=== PATIENT | male | born 1970 | race Caucasian/White ===

== ENCOUNTER → 2020-04-26 16:29 | Outpatient (CLI) | payer MEDICAID, SELFPAY ==
--- NOTE | 2020-04-26 16:50 | RAD_ITS ---
STUDY: X-RAY - CERVICAL SPINE REASON FOR EXAM: Male, 49 years old. BILATERAL HAND NUMBNESS, NKI TECHNIQUE: 5 view(s) of the cervical spine were obtained. COMPARISON: None FINDINGS: Normal anterior atlantoaxial articulation. Normal odontoid process. Normal cervical lordosis. There is multi-level endplate spondylosis. There is multi-level degenerative disc disease with multilevel disc space narrowing. There is multi-level osseous foraminal stenosis. The soft tissue structures are unremarkable. RAD/Cerv Spine 4 or 5 Views IMPRESSION: Degenerative changes without acute findings Electronically Signed: Maurice Escobar DO at 3:23 EST Tel , Service support ,
[2020-04-26 17:16] LABS: Absolute Lymphocyte Count 2.16 X10^3/uL (0.83-4.51); Absolute Neutrophil Count 5.1 X10^3/uL (2.0-7.7); Basophil# 0.04 X10^3/uL; Basophil% 0.5 % (0-1); Eosinophil# 0.14 X10^3/uL; Eosinophils% 1.7 % (0-5); Hematocrit 40.7 % (40-54); Hemoglobin 13.9 g/dL (13.0-16.5); Lymphocyte # 2.16 X10^3/ul (4.0); Lymphocyte % 26.5 % (19-41); Mean Corp Hgb Conc 34.2 g/dL (32-36); Mean Corpuscular Hgb 32.6 pg (27.0-32.0); Mean Corpuscular Volume 95.3 fL (80-94); Mean Platelet Vol. 9.3 fl (6.2-12.0); Monocyte% 8.6 % (0-10); NRBC Flagged by Analyzer 0 % (0-5); Neutrophil # 5.11 X10^3/uL (2.7-7.7); Neutrophil % 62.6 % (47-70); Platelet Count 251 K/mm3 (150-450); RBC Distribution Width CV 12.5 % (11.6-14.6); RBC Distribution Width SD 43.8 fl (35.1-43.9); Red Blood Count 4.27 M/mm3 (4.6-6.2); White Blood Count 8.2 K/mm3 (4.4-11.0)
[2020-04-26 17:55] LABS: ALB/GLOB Ratio 1.1 RATIO (0.9-2.4); AST(SGOT) 24 U/L (15-37); Alanine Aminotransfer ALT/SGPT 36 U/L (16-61); Albumin, Serum 3.9 g/dL (3.2-5.0); Alkaline Phosphatase 91 U/L (45-117); Anion Gap 6 (5-15); BUN 17 mg/dL (7-18); BUN/Creat Ratio 14.3 RATIO (10-20); CPK Total, Creatine Kinase 270 U/L (39-308); Calcium,Total 8.6 mg/dL (8.5-10.1); Chloride 105 mmol/L (98-107); Creatinine, Serum 1.19 mg/dL (0.70-1.30); EST Glomerular Filtration Rate 69 mL/min (>60); Est Glom Filt Rate - Afr Amer 84 mL/min (>60); Globulin 3.4 g/dL (2.2-4.2); Glucose 90 mg/dL (74-106); Magnesium 2.4 mg/dL (1.6-2.6); Potassium 4.2 mmol/L (3.5-5.1); Protein, Total 7.3 g/dL (6.4-8.2); Sodium Level 138 mmol/L (136-145)
[2020-04-26 17:57] LABS: Vitamin B12 350 pg/mL (211-911); Vitamin D,25 Hydroxy 56.2 ng/mL
== END ==
PROVIDERS: PCP Family Medicine; Referring Provider Family Medicine; Visit Provider Family Medicine
DX: R25.2 Cramp and spasm (principal); G62.9 Polyneuropathy, unspecified; G47.62 Sleep related leg cramps
CPT/HCPCS: 36415; 72050; 80053; 82306; 82550; 82607; 83735; 84443; 85025

== ENCOUNTER → 2020-05-05 08:03 | Outpatient (CLI) | payer MEDICAID, SELFPAY ==
--- NOTE | 2020-05-05 13:58 | NEURO ---
NCS and/or EMG Patient Report Ordering Doctor: Sophie Boucher DATE OF SERVICE: 05/05/20 Karan Childress presents for electrodiagnostic testing of the upper limbs. Reports numbness and tingling in both hands. Electrodiagnostic findings: The median motor nerve demonstrates prolonged distal latency on the left side with normal amplitude and reduced conduction velocity. Left median motor nerve demonstrates prolonged distal latency with normal amplitude and reduced conduction velocity. Normal ulnar motor latency is noted bilaterally with normal amplitudes and drop in conduction velocity across the elbow. Prolonged left median F-wave. Prolonged right ulnar F wave is noted. Prolonged median sensory latency at the wrist is noted bilaterally. On needle EMG, all muscles tested in the upper limb showed no evidence of denervation with normal motor unit action potentials. No denervation noted in the cervical paraspinals. Electrodiagnostic impression: This is an abnormal study in the upper limbs 1. Electrodiagnostic findings demonstrate bilateral median mononeuropathy. This is consistent with a mild to moderate bilateral carpal tunnel syndrome. 2. Electrodiagnostic findings demonstrate bilateral ulnar neuropathy, consistent with a mild bilateral cubital tunnel syndrome. 3. There is no electrodiagnostic evidence for cervical radiculopathy If there are any further questions, please do not hesitate to contact me
== END ==
PROVIDERS: PCP Family Medicine; Referring Provider Family Medicine; Visit Provider Family Medicine
DX: M54.12 Radiculopathy, cervical region (principal)
CPT/HCPCS: 95886; 95913

== ENCOUNTER → 2020-10-25 12:21 | Outpatient (CLI) | payer OTHER, SELFPAY ==
--- NOTE | 2020-10-25 12:30 | MRI_ITS ---
STUDY: MRI CERVICAL SPINE WITHOUT CONTRAST REASON FOR EXAM: Male, 50 years old. CERVICAL RADICULOPATHY TECHNIQUE: Standardized fat and water weighted pulse sequences were obtained in the sagittal and axial planes. COMPARISON: None FINDINGS: Normal foramen magnum and brainstem-cervical cord junction. There is straightening of the normal cervical lordosis. C2-3: Normal endplates. Normal disc height, signal and morphology. Normal central canal and intervertebral neural foramina. C3-4: There is minimal disc space narrowing and endplate spondylosis. Minimal disc osteophyte complex without significant central canal stenosis. Uncovertebral and facet arthropathy with mild right and moderate left foraminal stenosis. C4-5: There is minimal disc space narrowing and endplate spondylosis. There is no significant disc herniation, central canal or foraminal stenosis. C5-6: There is mild disc space narrowing and endplates spondylosis. Mild disc osteophyte complex with mild central canal stenosis. Uncovertebral and facet arthropathy with mild right and mild left foraminal cyst. C6-7: There is moderate disc space narrowing and endplates spondylosis. Mild disc osteophyte complex with mild central canal stenosis. Uncovertebral and facet arthropathy with mild right and moderate left foraminal stenosis. C7-T1: There is minimal disc space narrowing and endplate spondylosis. Minimal disc osteophyte complex without significant central canal stenosis. Uncovertebral and facet arthropathy with mild right and moderate left foraminal stenosis. Normal cervical cord. MRI/Spine Cervical (Routine) IMPRESSION: C3/C4: Moderate left foraminal stenosis. C6/C7: Moderate left foraminal stenosis. C7/T1: Moderate left foraminal stenosis. Electronically Signed: Brandon Browning MD at 9:36 EDT Tel , Service support ,
--- NOTE | 2020-10-25 13:34 | RAD_ITS ---
STUDY: X-RAY - SACROILIAC JOINTS REASON FOR EXAM: Male, 50 years old. PAIN IN JOINT TECHNIQUE: 3 view(s) of the sacroiliac joints were obtained. COMPARISON: None. FINDINGS: There are degenerative changes of the bilateral sacroiliac joints. Sclerosis along the medial aspects of both iliac wings. Normal visualized iliac bones. Normal visualized soft tissue structures. RAD/S-I Jts 3 or More Views IMPRESSION: Degenerative changes of the bilateral sacroiliac joints, as described above. Sclerosis seen along the medial aspects of both iliac bones. Electronically Signed: Paulo De Oliveira MD at 14:48 EDT , Service support ,
--- NOTE | 2020-10-25 13:34 | RAD_ITS ---
STUDY: X-RAY - RIGHT SHOULDER REASON FOR EXAM: Bilateral shoulder pain, right greater than left. TECHNIQUE: 3 view(s) of the shoulder. COMPARISON: None. FINDINGS: Normal glenohumeral articulation. There is acromioclavicular arthrosis with an ossicle adjacent to the superior aspect of the distal clavicle. Normal acromion. Normal humeral head and visualized proximal humerus. The soft tissue structures are unremarkable. Normal visualized pulmonary apex. RAD/Shoulder min 2 Views IMPRESSION: Acromioclavicular arthrosis. Electronically Signed: Kendall Ornelas MD at 11:08 EDT Tel , Service support ,
--- NOTE | 2020-10-25 13:34 | RAD_ITS ---
STUDY: X-RAY - BILATERAL, Knee(s) REASON FOR EXAM: Bilateral knee joint pain. TECHNIQUE: A single view of the BILATERAL, knee(s) was obtained, an AP standing weight-bearing view. COMPARISON: None. FINDINGS - RIGHT KNEE: There is a bone infarct in the distal femoral diaphysis. There is avascular necrosis of the lateral femoral condyle. There is a bone infarct in the proximal tibial diaphysis. Normal right proximal tibiofibular articulation. Normal medial femorotibial compartment of the right knee. Normal lateral femorotibial compartment of the right knee. The soft tissue structures are unremarkable. FINDING - LEFT KNEE: There is avascular necrosis of the lateral femoral condyle. There is a bone island in the proximal tibial diametaphysis. Normal left proximal tibiofibular articulation. Normal medial femorotibial compartment of the left knee. Normal lateral femorotibial compartment of the left knee. The soft tissue structures are unremarkable. 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 Bone infarcts in the proximal tibia bilaterally and distal right femur. Electronically Signed: Kendall Ornelas MD at 14:06 EDT Tel , Service support ,
--- NOTE | 2020-10-25 13:34 | RAD_ITS ---
STUDY: X-RAY - LUMBAR SPINE REASON FOR EXAM: Male, 50 years old. PAIN IN JOINT TECHNIQUE: 3 view(s) of the lumbar spine were obtained. COMPARISON: None FINDINGS: Normal lumbar lordosis. There is no substantial scoliosis. Minimal anterior listhesis of L4 on L5. The patient is status post laminectomy and interpedicular screw and floresita fixation at the L3-L4 and L4-L5 levels. Mild to moderate degree of disc space narrowing at the L2-L3, L3-L4 and L4-L5 levels. There is atherosclerotic calcification of the abdominal aorta without a demonstrated aneurysm. RAD/Lumbar Spine 2 or 3 Views IMPRESSION: Degenerative changes of the spine, as detailed above. Status post laminectomy and fusion at the L3-L4 and L4-L5 levels. Electronically Signed: Paulo De Oliveira MD at 14:44 EDT , Service support ,
--- NOTE | 2020-10-25 13:37 | RAD_ITS ---
STUDY: X-RAY - LEFT SHOULDER REASON FOR EXAM: Bilateral shoulder pain. TECHNIQUE: 3 view(s) of the shoulder. COMPARISON: None. FINDINGS: Normal glenohumeral articulation. There is acromioclavicular arthrosis. Normal acromion. Normal humeral head and visualized proximal humerus. The soft tissue structures are unremarkable. Normal visualized pulmonary apex. RAD/Shoulder min 2 Views IMPRESSION: Acromioclavicular arthrosis. Electronically Signed: Kendall Ornelas MD at 13:58 EDT Tel , Service support ,
[2020-10-25 14:52] LABS: Absolute Lymphocyte Count 1.81 X10^3/uL (0.83-4.51); Absolute Neutrophil Count 2.3 X10^3/uL (2.0-7.7); Basophil# 0.03 X10^3/uL; Basophil% 0.6 % (0-1); Color, Urine Yellow (Yellow); Eosinophil# 0.18 X10^3/uL; Eosinophils% 3.8 % (0-5); Glucose, Dipstick Normal (Normal); Hematocrit 38.8 % (40-54); Hemoglobin 13.2 g/dL (13.0-16.5); Ketone-Dipstick Negative (Negative); Leukocyte Esterase-Dipstick Negative /ul (Negative); Lymphocyte # 1.81 X10^3/ul (0.83-4.51); Lymphocyte % 37.7 % (19-41); Mean Corpuscular Volume 94.2 fL (80-94); Mean Platelet Vol. 9.4 fl (6.2-12.0); Monocyte# 0.44 X10^3/uL; Monocyte% 9.2 % (0-10); NRBC Flagged by Analyzer 0 % (0-5); Neutrophil # 2.34 X10^3/uL (2.7-7.7); Neutrophil % 48.7 % (47-70); Nitrite-Dipstick Negative (Negative); Occult Blood-Urine 10 /ul (Negative); Platelet Count 223 K/mm3 (150-450); Protein-Dipstick Negative (Negative); RBC Distribution Width CV 12.4 % (11.6-14.6); RBC Distribution Width SD 42.9 fl (35.1-43.9); Red Blood Count 4.12 M/mm3 (4.6-6.2); Urine Bilirubin Dipstick Negative (Negative); Urine Clarity Clear (Clear); Urine Urobilinogen Normal (Normal); White Blood Count 4.8 K/mm3 (4.4-11.0)
[2020-10-26 01:37] LABS: AST(SGOT) 48 U/L (15-37); Alanine Aminotransfer ALT/SGPT 71 U/L (16-61); Albumin, Serum 3.7 g/dL (3.2-5.0); Alkaline Phosphatase 105 U/L (45-117); Anion Gap 8 (5-15); BUN 16 mg/dL (7-18); BUN/Creat Ratio 15.1 RATIO (10-20); CPK Total, Creatine Kinase 153 U/L (39-308); Calcium,Total 9.1 mg/dL (8.5-10.1); Chloride 106 mmol/L (98-107); Cholesterol 230 mg/dL (200); Creatinine, Serum 1.06 mg/dL (0.70-1.30); EST Glomerular Filtration Rate 79 mL/min (>60); Est Glom Filt Rate - Afr Amer 96 mL/min (>60); Ferritin 123 ng/mL (26-388); Globulin 3.6 g/dL (2.2-4.2); Glucose 87 mg/dL (74-106); High Density Lipoprotein 34 mg/dL; Iron 115 ug/dL (65-175); Iron Binding Capacity,Total 342 ug/dL (250-450); Magnesium 2.1 mg/dL (1.6-2.6); Potassium 4.1 mmol/L (3.5-5.1); Protein, Total 7.3 g/dL (6.4-8.2); Rheumatoid Factor < 10.0 IU/mL (<15); Sodium Level 138 mmol/L (136-145); Thyroid Stim Hormone (TSH) 2.15 uIU/mL (0.358-3.74); Triglycerides 207 mg/dL; Very Low Density Lipoprotein 41 mg/dL (5-40)
[2020-10-28 03:07] LABS: QNTFERON TB Mitogen Value > 10.00 IU/mL (.); QNTFERON TB Nil Value 0 IU/mL (.); QNTFERON TB1+ Ag Value 0 IU/mL (.); QNTFERON TB2+ Ag Value 0 IU/mL (.); Thyroid Peroxidase AB 13 IU/mL (0-34)
[2020-10-28 08:09] LABS: RNP Ab 0.4 AI (0.0-0.9); SJOGREN'S Anti-SS-A test < 0.2 AI (0.0-0.9); SJOGREN'S Anti-SS-B test < 0.2 AI (0.0-0.9); Smith Ab <0.2 AI (0.0-0.9)
[2020-10-28 12:46] LABS: Hepatitis B Surface Antibody Non-Reactive; Hepatitis B Surface Antigen Non-Reactive (Nonreactive); Hepatitis C Antibody Non-Reactive (Nonreactive); Vitamin B12 357 pg/mL (211-911); Vitamin D,25 Hydroxy 49.3 ng/mL
[2020-10-28 16:40] LABS: Anti-Nuclear Antibody Test Negative (.); Anti-dsDNA Ab <1 IU/mL (0-9)
[2020-10-28 16:52] LABS: CCP IgG Antibodies 4 units (0-19); Hepatitis B Core Ab Total Negative (Negative); QNTIFERON TB Positive Criteria Negative (Negative)
== END ==
PROVIDERS: PCP Family Medicine; Referring Provider Family Medicine; Visit Provider Family Medicine
DX: M54.12 Radiculopathy, cervical region (principal); M25.50 Pain in unspecified joint; Z12.5 Encounter for screening for malignant neoplasm of prostate; R53.82 Chronic fatigue, unspecified; Z13.220 Encounter for screening for lipoid disorders; Z13.29 Encounter for screening for other suspected endocrine disorder
CPT/HCPCS: 72100; 72141; 72202; 73030; 73565; 80053; 80061; 81002; 82306; 82550; 82607; 82728; 83540; 83550; 83735; 84153; 84443; 85025; 86038; 86200; 86225; 86235; 86376; 86431; 86480; 86704; 86706; 86803; 87340; G0103

== ENCOUNTER → 2021-01-04 14:58 | Outpatient (CLI) | payer OTHER, SELFPAY ==
--- NOTE | 2021-01-04 15:03 | MRI_ITS ---
STUDY: MRI RIGHT SHOULDER REASON FOR EXAM: Male, 50 years old. RIGHT -- SHOULDER PAIN,NKI TECHNIQUE: Standardized fat and water weighted pulse sequences were obtained in all 3 orthogonal planes. COMPARISON: X-ray of the right shoulder dated OCTOBER 25, 2020 FINDINGS: Partial interstitial tearing is present in the superior fibers of the far anterior aspect of the supraspinatus tendon at the greater tuberosity insertion site. There is moderate thickening of the surrounding tendon fibers. The posterior aspects of the supra spinatus tendon are unremarkable. Normal infraspinatus tendon. Normal subscapularis tendon. Normal teres minor tendon. Normal supraspinatus muscle. Normal infraspinatus muscle. Normal subscapularis muscle. Normal teres minor muscle. Normal glenohumeral articulation. Normal humeral head and visualized proximal humerus. Normal biceps labral complex. Normal intracapsular long biceps tendon. Normal labrum. Normal capsulo- ligamentous complex. Normal rotator interval. There is mild osteoarthritis of the acromioclavicular articulation. Mild hypertrophy is present on the dorsal surface of the AC joint. Small ossicles are present in the same region. There is a Type II morphology (curved), with a neutral orientation. There is no subacromial-subdeltoid bursal fluid. Normal visualized coracohumeral and coracoacromial ligaments. Normal quadrilateral space. Normal axillary space. Normal deltoid muscle. Normal trapezius muscle. MRI/Upper Ext Joint Only(Routine) IMPRESSION: 1. Partial interstitial tearing is present in the superior fibers of the far anterior aspect of the supraspinatus tendon at the greater tuberosity insertion site. There is moderate thickening of the surrounding tendon fibers. The posterior aspects of the supra spinatus tendon are unremarkable. 2. Mild AC joint degeneration/hypertrophy Electronically Signed: Amador Mast MD at 21:02 EDT , Service support ,
--- NOTE | 2021-01-04 15:03 | MRI_ITS ---
STUDY: MRI LEFT SHOULDER REASON FOR EXAM: Left shoulder pain for 3-4 months, no specific injury. TECHNIQUE: Standardized fat and water weighted pulse sequences were obtained in all 3 orthogonal planes. COMPARISON: Radiographs 10/25/2020. FINDINGS: There is mild supraspinatus/infraspinatus tendinosis (T2 sagittal images 6-13) without discrete tendon tear. Normal subscapularis tendon. Normal teres minor tendon. Normal supraspinatus muscle. Normal infraspinatus muscle. Normal subscapularis muscle. There is mild atrophy with mild partial fat replacement of the teres minor muscle (T2 axial images 16-18). Normal glenohumeral articulation. There is a small enchondroma with a central calcification in the proximal humeral diaphysis (T2 coronal images 14-16) measuring 0.8 cm in transverse dimension. Normal biceps labral complex. Normal intracapsular long biceps tendon. Normal labrum. Normal capsulo- ligamentous complex. There is acromioclavicular arthrosis with hypertrophic changes effacing the subacromial fat (T2 sagittal images 5, 6). There is a Type II morphology (curved), with a neutral orientation. There is no subacromial-subdeltoid bursal fluid. Normal visualized coracohumeral and coracoacromial ligaments. Normal deltoid muscle. Normal trapezius muscle. MRI/Upper Ext Joint Only(Routine) IMPRESSION: Mild suprasellar/infraspinatus tendinosis without demonstrated rotator cuff tear. Mild atrophy of the teres minor muscle. Acromioclavicular arthrosis. Small enchondroma in the proximal humerus. Electronically Signed: Kendall Ornelas MD at 7:52 EDT Tel , Service support ,
== END ==
PROVIDERS: PCP Family Medicine; Referring Provider Family Medicine; Visit Provider Family Medicine
DX: M25.512 Pain in left shoulder (principal); M25.511 Pain in right shoulder
CPT/HCPCS: 73221

== ENCOUNTER → 2021-01-27 08:55 | Outpatient (CLI) | payer OTHER, SELFPAY ==
--- NOTE | 2021-01-27 09:05 | RAD_ITS ---
STUDY: X-RAY - PELVIS AND LEFT HIP REASON FOR EXAM: Male, 50 years old. Left anterior hip pain. Pain radiates down leg. 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 TECHNIQUE: History views of the pelvis and hip. COMPARISON: None. FINDINGS: There is a non-specific bowel gas pattern. Normal visualized soft tissue structures. There is evidence of bowel 45 fusion. Normal bilateral iliac wings, sacroiliac joints and visualized sacrum. Normal bilateral superior and inferior pubic rami. Normal pubic symphysis. Normal bilateral ischial tuberosities. Normal visualized left femoral head. Normal left acetabulum. Normal left hip joint. RAD/HIP, UNI W/ Pelvis 2-3 Views IMPRESSION: 1. Normal x-ray examination of the pelvis and left hip. 2. Lumbar fusion. Electronically Signed: Bryce Cox DO at 16:23 EDT Tel [phone], Service support ,
== END ==
PROVIDERS: PCP Internal Medicine; Referring Provider Internal Medicine; Visit Provider Internal Medicine
DX: M25.552 Pain in left hip (principal)
CPT/HCPCS: 73502

== ENCOUNTER 2021-08-23 14:15 | Outpatient (CLI) | payer OTHER, SELFPAY ==
[2021-08-23 14:18] LABS: Bacteria 0 SEEN /hpf (None Seen); Mucous, Urine 0 SEEN /hpf (<or=2+); Red Blood Cells-Urine 0 SEEN /hpf (0-5); White Blood Cells 0 SEEN /hpf (0-5)
[2021-08-23 15:27] LABS: Color, Urine Yellow (Yellow); Glucose, Dipstick Normal (Normal); Ketone-Dipstick Negative (Negative); Leukocyte Esterase-Dipstick Negative /ul (Negative); Nitrite-Dipstick Negative (Negative); Occult Blood-Urine Negative /ul (Negative); Protein-Dipstick Negative (Negative); Urine Bilirubin Dipstick Negative (Negative); Urine Clarity Clear (Clear); Urine Urobilinogen Normal (Normal)
[2021-08-23 16:02] LABS: Squamous Epithelial Cells - UA 0-5 SEEN /hpf (0-5)
== END 2021-08-23 23:59 | disposition home or self-care (01) ==
LOC: LABSPEC 14:17
PROVIDERS: PCP Internal Medicine; Referring Provider Nurse Practitioner Family; Visit Provider Nurse Practitioner Family
DX: N48.89 Other specified disorders of penis (principal)
CPT/HCPCS: 81001; 87086

== ENCOUNTER → 2022-02-23 | Outpatient (CLI) | payer OTHER, SELFPAY ==
[2022-02-23 08:20] LABS: Absolute Lymphocyte Count 1.17 X10^3/uL (0.83-4.51); Absolute Neutrophil Count 2.1 X10^3/uL (2.0-7.7); Basophil# 0.02 X10^3/uL; Basophil% 0.5 % (0-1); Eosinophil# 0.12 X10^3/uL; Hematocrit 43.1 % (40-54); Hemoglobin 14.5 g/dL (13.0-16.5); Lymphocyte # 1.17 X10^3/ul (0.83-4.51); Mean Corp Hgb Conc 33.6 g/dL (32-36); Mean Corpuscular Hgb 33.1 pg (27.0-32.0); Mean Corpuscular Volume 98.4 fL (80-94); Mean Platelet Vol. 8.9 fl (6.2-12.0); Monocyte% 14.9 % (0-10); NRBC Flagged by Analyzer 0 % (0-5); Neutrophil # 2.11 X10^3/uL (2.7-7.7); Neutrophil % 52.1 % (47-70); Platelet Count 206 K/mm3 (150-450); RBC Distribution Width CV 12.2 % (11.6-14.6); RBC Distribution Width SD 44.7 fl (35.1-43.9); Red Blood Count 4.38 M/mm3 (4.6-6.2)
[2022-02-23 08:59] LABS: Vitamin D,25 Hydroxy 60.7 ng/mL
[2022-02-23 09:00] LABS: ALB/GLOB Ratio 1.1 RATIO (0.9-2.4); AST(SGOT) 21 U/L (15-37); Alanine Aminotransfer ALT/SGPT 23 U/L (16-61); Albumin, Serum 3.6 g/dL (3.2-5.0); Alkaline Phosphatase 81 U/L (45-117); Anion Gap 5 (5-15); BUN 15 mg/dL (7-18); BUN/Creat Ratio 12.6 RATIO (10-20); Calcium,Total 8.8 mg/dL (8.5-10.1); Chloride 106 mmol/L (98-107); Cholesterol 229 mg/dL (200); Creatinine, Serum 1.19 mg/dL (0.70-1.30); EST Glomerular Filtration Rate 69 mL/min (>60); Est Glom Filt Rate - Afr Amer 83 mL/min (>60); Globulin 3.4 g/dL (2.2-4.2); Glucose 101 mg/dL (74-106); High Density Lipoprotein 36 mg/dL; Potassium 4.3 mmol/L (3.5-5.1); Sodium Level 141 mmol/L (136-145); Triglycerides 181 mg/dL; Very Low Density Lipoprotein 36 mg/dL (5-40)
== END | disposition home or self-care (01) ==
PROVIDERS: PCP Internal Medicine; Referring Provider Internal Medicine; Visit Provider Internal Medicine
DX: M25.551 Pain in right hip (principal); E78.5 Hyperlipidemia, unspecified; E78.1 Pure hyperglyceridemia; Z85.9 Personal history of malignant neoplasm, unspecified; Z12.5 Encounter for screening for malignant neoplasm of prostate
CPT/HCPCS: 36415; 80053; 80061; 82306; 84153; 85025; G0103

== ENCOUNTER → 2022-07-13 | Outpatient (CLI) | payer OTHER, SELFPAY ==
--- NOTE | 2022-07-13 15:49 | BD_ITS ---
STUDY: DUAL ENERGY X-RAY ABSORPTIOMETRY / DXA REASON FOR EXAM: Male, 52 years old. Chronic back pain TECHNIQUE: Bone Mineral Density (BMD) measurements of lumbar spine and bilateral hips were obtained. COMPARISON: None. FINDINGS: Lumbar Spine (L1-L4): g/cm2 (1.102) / T-score (0.4) / Z-score (0.8) Findings are suggestive of normal bone density with a low fracture risk. Left Femur Total: g/cm2 (0.888) / T-score (-1.0) / Z-score (-0.6) Left Femoral Neck: g/cm2 (0.790) / T-score (-1.0) / Z-score (-0.3) Right Femur Total: g/cm2 (0.931) / T-score (-0.7) / Z-score (-0.4) Right Femoral Neck: g/cm2 (0.833) / T-score (0.7) / Z-score (0.0) BD/Dexa Bone Density Study IMPRESSION: The patient is considered normal as outlined below according to World Mika Organization (WHO) criteria with a low fracture risk. Reference Information: The T-score is the number of standard deviations above or below the standard which is normal for young adults at their peak bone mineral density. The World Health Organization (WHO) interprets the T-scores as follows: Above -1 Normal bone density Between -1 and -2.5 Osteopenia Equal to / or below -2.5 Osteoporosis As a practical clinical guideline, osteopenia may be graded as follows: Mild -1 through -1.5 Moderate -1.6 through -2.0 Severe -2.1 through -2.4 The Z-score is the number of standard deviations above or below age-matched controls. A Z-score of less than -1.5 would be considered abnormal. References: 1. NIH Osteoporosis and Related Bone Diseases www osteo.org 2. International Society for Clinical Densitometry www iscd.org 3. National Osteoporosis Foundation www nof.org Electronically Signed: Paulo De Oliveira MD at 8:29 EST ,
== END | disposition home or self-care (01) ==
LOC: OPBD 15:40
PROVIDERS: PCP Internal Medicine; Visit Provider Internal Medicine
DX: M54.50 Low back pain, unspecified (principal); G89.29 Other chronic pain; Z98.890 Other specified postprocedural states
CPT/HCPCS: 77080

== ENCOUNTER 2022-08-14 08:58 | Outpatient (RCR) | payer OTHER, SELFPAY ==
--- NOTE | 2022-08-23 09:39 | HP.OTFCE_ITS ---
Floor (Occasional 1-33% of Day): 35# Floor (Frequent 34-66% of Day): 18# Floor (Constant 67-100% of Day): NA Floor PDL: Light-Medium Knee (Occasional 1-33% of Day): 35# Knee (Frequent 34-66% of Day): 18# Knee (Constant 67-100% of Day): NA Knee PDL: Light-Medium Waist (Occasional 1-33% of Day): 35# Waist (Frequent 34-66% of Day): 18# Waist (Constant 67-100% of Day): NA Waist PDL: Light-Medium Shoulder (Occasional 1-33% of Day): 35# Shoulder (Frequent 34-66% of Day): 18# Shoulder (Constant 67-100% of Day): NA Shoulder PDL: Light-Medium Overhead (Occasional 1-33% of Day): 25# Overhead (Frequent 34-66% of Day): 10# Overhead (Constant 67-100% of Day): NA Overhead PDL: Light Comments: Physical Demand level of Light Medium for lifting from floor/knee/waist and shoulders-. Physical Demand level of Light for lifting overhead-. pt reports pain with each lift of 8/10 in back and shoulders- pt can not lift on a constant ability due to increase in pain. Bending: Occasional Ability (1-33% of day) Squatting: Occasional Ability (1-33% of day) Comments: with external support Kneeling: Occasional Ability (1-33% of day) Comments: low occasional with use of external support Reaching out: Occasional Ability (1-33% of day) Reaching up: Occasional Ability (1-33% of day) Sitting: Frequent Ability (34-66% of day) Walking: Occasional Ability (1-33% of day) Standing: Occasional Ability (1-33% of day) Duration Sedentary Sedentary Light Light Light Medium Medium Medium Heavy Very Heavy Heavy Occasional (0-33% of day) Frequent (34-66% of day) Constant (67-100% of day) 10 # Negligible Negligible 15 # 8 # Negligible 20 # 10# Negli. 35 # 18 # 7 # 50 # 25 # 10 # 75 # 100 # >100 # 38 # 50 # >50 # 15 # 20 # >20 # Weight:: 97.522 kg Hand Dominance: right Medical History Including Restrictions: pt states he was in good health until- he was lifting a pump ( 100+ lbs) and herniated disc of L3-L5. pt underwent sx in 2018 having laminectomy and fusion. Pt states the surgery was successful other than drop foot since sx. pt states he did undergo therapy and returned to work. pt states he does wear AFO to assist with his foot drop. pt states he can only wear AFO for only about 4 hours at a time due to leg cramping. pt states he began having joint pain and weakness about a two years ago. decreasing his performance at work. pt does not exercise on a regular basis. pt states he has been trying chiropractic services trying to alleviate his symptoms without success. pt states he has not worked since 2021. pt states he assist his and his children with daily tasks. works from home. Diagnoses: low back pain. chronic pain Symptoms: right knee and lower leg/ankle pain due to nerve damage from is prior back sx. takes gabapentin. Low back pain. thoracic back pain. bilateral joint pain ( shoulders/knees/hips etc). Median nerve entrapment. Pain: pt reports left hand pain and low back pain right lower leg and ankle and discomfort in lower cervical and upper thoracic. Bilateral shoulders. 4-10. 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 Pt states he was required to set up and take down machines for factory/industry to produce a product. Pt s tates this required to lift about 100# if he was by himself on a job or would have someone assist him on the job with lifting as able. pt states he is required to use hand and power tools to put large pieces of equipment together. pt is required to stand, kneel, crawl and lay on belly to get to where he needed to secure parts of eq. pt states he became to painful to perform tasks safely. pt states last day he worked was Middle of last year maybe January of 2022. Behavioral: pt cooperative throughout assessment. ADLS: Pt lives with his and two children (ages 9/7) in a ranch home with basement and two entry steps in through garaged with one handrail and front entry with one step and one hand rail. Laundry is on first floor. Pt has walk in shower- Pt can dress and bath ind. pt does not use ad. eq. to get through his day. pt does do the laundry, some cleaning and some yard work. Pt states if he can not do the yard work his will help. States they do not have a lot of yard because the pool takes up most of the back yard. Pt states his does the grocery shopping and cooking. Pt states he drives [place]. Pt states he can perform most tasks of home mtg. and daily tasks just is painful after or next day. ROM: pt demo ROM WFL Strength: Fit2 peak force in lbs. comparing right/left. right shoulder flexion 9# (pain 4-5/10) left 6# (4-5/10 pain) with resistive testing. right shoulder flexion 22# left 17.6#. right biceps 25# left 26.4#. right triceps 28# left 25#. right hip flexion 9# left 15#. right quad 23# left 19#. right hamstring 21# left 19#. right ankle dorsiflexion 15# left 13#. right ankle plantarflexion 33# left 23#. pt demo with fair strength and generalized weakness grossly throughout Right Home Office Claim Specialist Strength Average: 116.66 Right Home Office Claim Specialist Strength Percentile: 45% Left Home Office Claim Specialist Strength Average: 69.66 Left Home Office Claim Specialist Strength Percentile: 5% Right Lateral Pinch Average: 18.66 Right Lateral Pinch Percentile: 25% Left Lateral Pinch Average: 8.66 Left Lateral Pinch Percentile: <10% Right Tripod Pinch Average: 12.66 Right Tripod Pinch Percentile: <10% Left Tripod Pinch Average: 8.00 Left Tripod Pinch Percentile: <10% Sensation: [place] Monofilament sensory testing. right thumb 3.22 ( Diminished light touch) left 2.83 ( Normal sensation). right IF 2.83 left IF 2.83 ( Normal sensation). right MF 2.83 left MF 2.83 ( Normal sensation). right RF 2.83 left RF 2.83 ( Normal sensation). right LF 2.83 left LF 2.83 ( Normal sensation) Fine Motor: 9 hole peg test. right 21.47 50% for age range (50-54 years). left 25.97 25% for age range (50-54 years) Balance: functional reach testing for balance 10. NORMS FOR AGES 41-69yrs 14.9 ? 2.2. Interpretation: A score of 6 or less indicates a significant. increased risk for falls. A score between 6-10 inches indicates a. moderate risk for falls. [place]/3x right LB pain 10/10x pt holding breath 10/10 rapidly ( no change in pace pt guarded with movements). 7/10 pain following. heart rate 101 Squatting: pt demo 3/3 and 10/10x pt declined performing 10 x rapidly due to increase in pain. pt demo holding breath throughout task. 123 heart rate. pain 8/10. pt can squat on occasional ability Kneeling: pt demo the ability to kneel 3/3 only. Pt declined performing 10/10x or 10/10x rapidly. left knee pain 8/10 low back pain 8/10. pt relied heavily on external support for performance of task 3/3x. pt can kneel on low occasional ability with use of external support Reaching out/up: pt demo reaching up/out 3/3, 10/10 ( facial grimace) bilateral shoulder 6/10 and 10/10 rapidly 6/10 pain. heart rate 110. pt can reach up/out on occasional ability. pain limiting factor is pain Walking: pt completed ambulation for 7 min with a reciprocal gait pattern- heart rate 101. pain 8/10 left knee, neck and low back. pt can ambulate on occasional ability Standing: pt demo the ability to stand for 8 min with shifting body weight. pt can stand on occasional ability. Sitting: pt demo the ability to sit for 40 min with noted discomfort as he was sifting his body weight, rolling shoulders -. pt can sit on frequent ability Climbing Stairs: pt ascended and descended 10 steps with a reciprocal step pattern. use o right UE on hand rail both directions. Floor Lift: pt demo the ability to lift 20# + box wt at 15# for maximal lift of 35# from this level. pt demo poor lifting mechanics with this low level lift. pt reported bilateral shoulder and back pain 8/10. A PHYSICAL DEMAND LEVEL OF LIGHT MEDIUM Knee Lift: pt demo the ability to lift 20# + box wt at 15# for maximal lift of 35# from this level. pt demo better lifting mechanics from this level. pt report ed bilateral shoulder and back pain 8/10. A PHYSICAL DEMAND LEVEL OF LIGHT MEDIUM Waist Lift: pt demo the ability to lift 20# + box wt at 15# for maximal lift of 35# from this level with good lifting mechanics. pt reported bilateral shoulder and back pain 8/10. A PHYSICAL DEMAND LEVEL OF LIGHT MEDIUM Shoulder Lift: pt demo the ability to lift 20# + box wt at 15# for maximal lift of 35# from this level. pt demo good lifting mechanics with this lift. pt reported bilateral shoulder and back pain 8/10. A PHYSICAL DEMAND LEVEL OF LIGHT MEDIUM Overhead Lift: pt demo the ability to lift 25# maximally for overhead lift with fair ability. pt reported pain in shoulders and back at 7/10. A PHYSICAL DEMAND LEVEL OF LIGHT Carrying: pt demo the ability to carry 25# 40 feet. with good ability Comments: pt reports pain 8/10 following tasks. Pt states he can lift and carry but will hurt the next day so is reluctant to lift or carry heavy items. pt states pain will last most of the day and will be difficult to mtg. next day. Pain is limiting factor at this time.
--- NOTE | 2022-08-23 09:40 | HP.OTFCE.D ---
FCE D/C Summary - Discharge CELINE MENDEZ was seen for a one time visit for an FCE on 08/14/22 and is discharged.
== END 2022-08-14 19:00 | disposition home or self-care (01) ==
LOC: OT 08:58
PROVIDERS: PCP Internal Medicine; Referring Provider Internal Medicine; Visit Provider Internal Medicine
DX: M54.50 Low back pain, unspecified (principal); G89.29 Other chronic pain; Z98.890 Other specified postprocedural states
CPT/HCPCS: 97750

== ENCOUNTER 2022-09-28 17:33 | Emergency (ER) | payer OTHER, SELFPAY ==
[2022-09-28 17:33] VITALS: BP 153/97; PULSE 87; RESP 18; TEMP 36.1; O2SAT 98; BMI 30.2
[2022-09-28] MEDS: HYDROcodone Bitartrate/Apap 5/325 Tablet PO (18:43)
--- NOTE | 2022-09-28 19:27 | EX.ED.UPPERE ---
HPI History of Present Illness HPI Narrative: Patient presents with right shoulder pain that began today. Patient states he was reaching for something on his truck when he felt something pop in his right shoulder. Patient states the pain is sharp and aching. Patient states pain is worse with any movement. Patient denies any paresthesias or weakness. Patient had outpatient x-rays of his shoulder and was told to come to the emergency department for possible dislocation. Chief Complaint: Disclocation Informant: patient Onset/Context/Timing Onset: Today Context: Sudden Onset Timing: Continuous Quality of Pain: Sharp and Aching Location: Right shoulder Worsened by: Movement Relieved by: Rest Associated Symptoms Associated Symptoms: Negative for Parasthesia, Weakness or Loss of Funtion PFSH PFS Medical History (Updated 09/28/22 @ 19:[address] Ronnell Navarrete DO) Chronic low back pain Fracture of right femur Penile pain Home Medications gabapentin 300 mg capsule 300 mg PO BID PRN 09/21/22 [History Last Taken Unknown] magnesium PO 09/21/22 [History Last Taken Unknown] multivitamin 1 tab PO DAILY 09/21/22 [History Last Taken Unknown] vitamin e PO 09/21/22 [History Last Taken Unknown] hydrocodone-acetaminophen 5-325mg 5mg-325mg 1 tab PO Q6H PRN PRN Pain 3 days #10 TABLETS 09/28/22 [Rx Last Taken Unknown] Allergy/AdvReac Type Severity Reaction Status Date / Time moxifloxacin [From Avelox] Allergy Mild SOB Verified 09/28/22 17:36 Penicillins Allergy Mild Rash Verified 09/28/22 17:36 Family History Mother Asthma Hypertension High cholesterol Brother Asthma Grandfather Colon cancer CVA (cerebral vascular accident) Surgical History (Updated 09/28/22 @ 19:[address] Ronnell Navarrete DO) History of lumbar fusion Hx of decompressive lumbar laminectomy S/P ORIF (open reduction internal fixation) fracture Social History Smoking Status: Former smoker alcohol intake: current alcohol intake frequency: holidays/special occasions only substance use type: does not use what type of physical activity do you participate in: none ROS ROS ED Constitutional Constitutional ED: Denies chills or fever(s) Eyes Eyes: Denies blurry vision or change in vision ENT ENT ED: Denies rhinorrhea or sore throat Cardiovascular Cardiovascular: Denies chest pain or palpitations Respiratory/Chest Respiratory/Chest: Denies cough or dyspnea Gastrointestinal Gastrointestinal: Denies nausea or vomiting Genitourinary Genitourinary ED: Denies dysuria or hematuria Musculoskeletal Musculoskeletal: Reports back pain and neck pain Integumentary Denies abscess or rash Neurologic Neurologic: Denies headache(s) or weakness Allergic/Immunologic Allergic/Immunologic ED: Denies mouth swelling or urticaria EXAM Physical Exam Const Vital Signs: 09/28/22 17:33 Temperature 97 F L Temperature Source Temporal Pulse Rate 87 Respiratory Rate 18 Blood Pressure 153/97 H Blood Pressure Mean 115 Pulse Ox 98 Oxygen Delivery Method Room Air Positive well nourished and well developed General Appearance ED: well developed and NAD HEENT Reports moist mucous membranes Resp normal respiratory effort and clear to auscultation bilaterally Cardio regular rate and regular rhythm GI non-tender and non-distended Palpation: soft Extremity Extremity Narrative: There is tenderness over the right shoulder. There is no obvious deformity noted. Range of motion was limited in all motions of the right shoulder secondary to pain. Strength is 5/5 in the radial, median, and ulnar areas. Sensation is intact to light touch in the radial, median, ulnar, and axillary areas. Radial pulses are equal bilaterally. Neuro oriented x3, CN's II-XII intact bilaterally, moves all extremities and no focal motor deficits Sensorium / Orientation: alert Motor Exam: strength 5/5 throughout Psych mental status grossly normal MDM MDM MDM Narrative Medical decision making narrative: Torrential diagnosis includes dislocation, fracture, sprain, soft tissue injury, rotator cuff tear, and arthritis. X-rays of the right shoulder were reviewed. These were taken as an outpatient just prior to arrival. There are 2 views. On my independent interpretation, there is no acute dislocation. There are some degenerative changes noted. Radiologist also interpreted the x-rays and agrees. Treatment and Re-Evaluation Narrative: Patient was advised of his findings. Patient was given a sling and swath. Patient was given a prescription for a short course of [place]. Patient was instructed to use ice to the area. Patient was given a referral for orthopedics. Patient was instructed to follow-up in 5 to 7 days. Patient understood and was agreeable with the plan. All questions were answered. Discharge Plan Triage Chief Complaint: Disclocation ED Provider: Ronnell Navarrete Dx/Rx/DC Orders Clinical Impression: Sprain of right shoulder Instructions: ED Shoulder Sprain Prescriptions: New hydrocodone-acetaminophen [hydrocodone-acetaminophen] 5-325 mg tablet 1 tab PO Q6H PRN PRN (Reason: Pain) 3 Days Qty: 10 0RF No Action gabapentin 300 mg capsule 300 mg PO BID PRN vitamin e PO magnesium PO multivitamin Tablet 1 tab PO DAILY Primary Care Provider: Parris Pelayo Referrals: Ruel Jones DO [Med Staff - Active Staff] - 3-5 Days Parris Pelayo MD [Primary Care Provider] - 5-7 Days Disposition Disposition: Home, Self Care
[2022-09-28 19:36] VITALS: BP 151/88; PULSE 77; RESP 15; O2SAT 95
== END 2022-09-28 20:10 | disposition home or self-care (01) ==
PROVIDERS: Emergency Provider Emergency Medicine; PCP Internal Medicine; Visit Provider Emergency Medicine
DX: S43.401A Unspecified sprain of right shoulder joint, initial encounter (principal); X50.1XXA Overexertion from prolonged static or awkward postures, initial encounter; Y92.812 Truck as the place of occurrence of the external cause; Z87.891 Personal history of nicotine dependence
CPT/HCPCS: 99283

== ENCOUNTER → 2022-09-28 | Outpatient (CLI) | payer OTHER, SELFPAY ==
--- NOTE | 2022-09-28 17:00 | RAD_ITS ---
INDICATION: Right shoulder pain EXAMINATION/TECHNIQUE: X-RAY - RIGHT XR Shoulder Min 2 Views 2 VIEWS COMPARISON: None. FINDINGS: SOFT TISSUES: No soft tissue swelling or gas. No radiopaque foreign body. BONES/JOINTS: No acute fracture or subluxation.. Degenerative hypertrophy at the acromioclavicular articulation.. Ossific density at the acromioclavicular articulation may be due to an accessory ossification or old injury. No sclerotic or destructive changes observed. RAD/Shoulder min 2 Views IMPRESSION: Degenerative changes. Electronically Signed: Pj Holliday DO at 17:53 EDT ,
--- NOTE | 2022-09-28 17:00 | RAD_ITS ---
INDICATION: Shoulder pain, SC joint pain EXAMINATION/TECHNIQUE: X-RAY - XR Sternoclavicular Joint(s) Min 3 Views COMPARISON: None. FINDINGS: SOFT TISSUES: No soft tissue swelling or gas. No radiopaque foreign body. BONES/JOINTS: No acute fracture or subluxation.. Normal alignment. Preservation of the joint space.. No sclerotic or destructive changes observed. RAD/S-C Jts Min 3 Views IMPRESSION: Negative. Electronically Signed: Pj Holliday DO at 17:52 EDT ,
== END | disposition home or self-care (01) ==
LOC: RAD 16:47
PROVIDERS: PCP Internal Medicine; Referring Provider Internal Medicine; Visit Provider Internal Medicine
DX: S43.203A Unspecified subluxation of unspecified sternoclavicular joint, initial encounter (principal); M25.511 Pain in right shoulder; X58.XXXA Exposure to other specified factors, initial encounter
CPT/HCPCS: 71130; 73030

== ENCOUNTER → 2022-10-24 | Outpatient (CLI) | payer OTHER, SELFPAY ==
--- NOTE | 2022-10-24 09:00 | PET_ITS ---
EXAMINATION: FDG PET/CT ? 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 ? COMPARISON EXAMINATION: None available ? TECHNIQUE: Following the intravenous administration of 13.22 mCi of F-18 deoxyglucose via the left antecubital fossa, multiplanar image acquisitions of the head, neck, chest, abdomen and pelvis to the level of the midthigh, obtained at one-hour post radiopharmaceutical administration contemporaneously interpreted with the current CT of the whole body dated 10/24/2022 via coregistration reveal: ? SERUM GLUCOSE LEVEL:? 130 mg/dL? HEIGHT:?? 71 inches WEIGHT:?? 215 pounds ? FINDINGS: ? HEAD/NECK:? There is no evidence of abnormal increased glucose metabolism in the pharyngeal mucosal space, parapharyngeal space, oropharynx, bilateral-lateral and anterior neck, hypopharynx and distribution of the larynx. ? The visualized portion of the cerebral cortical-subcortical structures demonstrate symmetric and preserved glucose metabolism. ? CHEST:? There is no quantitative scintigraphic evidence of abnormal increased glucose metabolism within the context of the bilateral hemithorax pulmonary parenchyma, right and left hemithorax at the pleural interface, mediastinal structures, and left-right thoracic perihilum. The left ventricular myocardium visualization is consistent with the [place]. ? CT of the chest demonstrates the following anatomic characteristics: Atherosclerotic calcification is defined in the thoracic aorta without evidence of dilatation, aneurysm formation. There are no parenchymal densities-nodules defined in the right and left hemithorax with quantitatively significant increased FDG uptake. Bilateral subcentimeter axillary soft tissue densities are nonglucose avid. ? ABDOMEN/PELVIS:? Normal physiologic distribution of the radiopharmaceutical is identified in the hepatic and splenic parenchyma, both renal units, urinary bladder, and visualized intestinal tract. ? CT of the abdomen and pelvis is remarkable for the following: Atherosclerotic calcification is defined in the abdominal aorta without evidence of dilatation, aneurysm formation. Abdominal and pelvic arterial calcification is observed. Calcified renal calculus formation is noted in the left kidney. Colonic diverticulosis is noted without evidence of diverticulitis. Calcification is noted within the prostate gland base involving the peripheral zone. A right inguinal fat-containing hernia is defined. Right and left inguinal soft tissue densities are ametabolic. ? SKELETAL:? There is no evidence of quantitatively significant enhanced glucose metabolism on meticulous inspection of the appendicular and axial skeletal structures. Orthopedic hardware placement is noted in the lumbar spine commensurate with spinal fusion operative intervention. ? Degenerative changes defined in the thoracic and lumbar spine demonstrate no evidence of increased glucose metabolism. There are no sclerotic, mixed sclerotic-lytic, or primarily lytic changes defined in the axial skeletal structures with evidence of increased FDG uptake. ? PET/PET/CT Tumor WB Initial IMPRESSION: ? NEGATIVE EXAMINATION. There is no definitive quantitative scintigraphic evidence of viable neoplasm on the current evaluation. Electronic Signature [employer] Cue[employer] D.O. Standardization and correction of the FDG SUV metric via 2d2c technology allow for vendor non-specific objective quantitative examination comparison and optimization of the sensitivity and specificity of the FDG PET-CT examination. Electronically Signed: Mega Cuevas, at 7:31 EDT ,
== END | disposition home or self-care (01) ==
LOC: ONC 08:55
PROVIDERS: PCP Internal Medicine; Referring Provider Internal Medicine; Visit Provider Internal Medicine
DX: M89.9 Disorder of bone, unspecified (principal)
CPT/HCPCS: 78816; A9552

== ENCOUNTER → 2022-11-08 | Outpatient (CLI) | payer OTHER, SELFPAY ==
--- NOTE | 2022-11-08 06:48 | MRI_ITS ---
STUDY: MRI CERVICAL SPINE REASON FOR EXAM: Male, 52 years old. Pain, loss of muscle left hand, numbness bilat hands TECHNIQUE: MRI examination of the cervical spine obtained with standard protocol including multiplanar multiecho Noncontrast imaging. Contrast: No contrast administered COMPARISON: No pertinent prior examinations for comparison. FINDINGS: Vertebral bodies and alignment: 1. Vertebral body height is maintained, there is straightening of cervical lordosis. No evidence of fracture. 2. There is an area of elevated T2 signal within the T1 vertebral body incompletely evaluated on current exam.. 3. Prevertebral soft tissue planes have normal appearance. 4. Normal appearance the odontoid process and alignment of the craniocervical junction. 5. Normal appearance the posterior muscular fascial planes of the cervical spine, and the posterior ligamentous support structure the cervical spine is intact. 6. Incidental note of a remote lacunar infarct in the basilar greg. Intervertebral disc levels: C2-3: Normal endplates. Normal disc height, signal and morphology. Normal central canal and intervertebral neural foramina. C3-4: Disc desiccation, broad-based chronic appearing disc bulge/borderline protrusion with deformity the anterior epidural space central thecal sac is narrowed to approximately 8 mm. No significant cord contact noted. Neural foramina are moderately narrowed bilaterally due to uncovertebral joint hypertrophic changes. C4-5: Disc desiccation, broad-based posterior disc bulge without evidence of disc herniation canal stenosis. Bilateral foraminal narrowing present greater on the RIGHT than LEFT due to uncovertebral joint and facet hypertrophic changes. Potential of early C4 nerve root impingement bilaterally. C5-6: Disc desiccation, broad-based posterior disc bulge, central thecal sac is narrowed to approximately 7 mm. There is cord contact with mild cord deformity without compression or edema. Bilateral foraminal narrowing due to uncal vertebral joint hypertrophic changes. C6-7: Closed desiccation, no disc herniation canal stenosis. Moderate bilateral foraminal narrowing due to uncovertebral joint changes. C7-T1: LEFT posterior lateral and foraminal disc protrusion osteophyte complex with compression of LEFT lateral recess with potential LEFT C8 nerve root impingement. Spinal CORD: There is normal appearance of the spinal cord. There is mild cord contact most notable at C5-6 however no evidence of acute compression, cord edema or hemorrhage. No intramedullary signal abnormality, masses or syrinx. Normal appearance of the cervical medullary junction. No evidence cord compression. MRI/Spine Cervical (Routine) IMPRESSION: 1. Multilevel moderate cervical spondylosis, broad-based posterior disc bulge/borderline protrusion at C3-4, only mild canal narrowing, no cord compression. 2. Mild narrowing thecal sac at C4-5 and C5-C6 again without evidence of acute cord compression. There is mild cord flattening at C5-6 without evidence of cord edema. 3. Multilevel foraminal narrowing due to joint and facet hypertrophic changes. There is potential C8 nerve root impingement in the LEFT lateral recess at C7-T1. Foraminal stenosis noted throughout the remaining cervical spine from C4-5 to C7-T1. 4. Normal appearance of the spinal cord with the exception of mild cord contact at C5-6, no intramedullary or intradural signal abnormality. No cord compression. Electronically Signed: Mega Nichols MD at 1:33 EDT ,
== END | disposition home or self-care (01) ==
PROVIDERS: PCP Internal Medicine; Referring Provider Orthopaedic Surgery; Visit Provider Orthopaedic Surgery
DX: S16.1XXA Strain of muscle, fascia and tendon at neck level, initial encounter (principal); X58.XXXA Exposure to other specified factors, initial encounter
CPT/HCPCS: 72141

== ENCOUNTER → 2023-02-06 | Outpatient (CLI) | payer OTHER, SELFPAY ==
[2023-02-06 11:57] LABS: Amphetamine Urine VISTA NEGATIVE (<1000 ng/mL); Barbiturate Urine VISTA NEGATIVE (< 200 ng/mL); Benzodiazepine Urine VISTA NEGATIVE (< 200 ng/mL); Cocaine Urine VISTA NEGATIVE (< 300 ng/mL); Ecstacy Urine VISTA NEGATIVE (< 500 ng/mL); Methadone Urine VISTA NEGATIVE (< 300 ng/mL); PCP Urine VISTA NEGATIVE (< 25 ng/mL); THC Urine VISTA NEGATIVE (< 50 ng/mL); Vista UDS pH Range 4
== END | disposition home or self-care (01) ==
LOC: LAB 10:12
PROVIDERS: PCP Internal Medicine; Referring Provider Anesthesiology Pain Medicine; Visit Provider Anesthesiology Pain Medicine
DX: F11.20 Opioid dependence, uncomplicated (principal)
CPT/HCPCS: 80307

== ENCOUNTER → 2023-02-20 | Outpatient (CLI) | payer OTHER, SELFPAY ==
--- NOTE | 2023-02-20 07:07 | CT_ITS ---
STUDY: CT LUMBAR SPINE WITHOUT CONTRAST REASON FOR EXAM: Male, 52 years old. POSTLAMINECTOMY RICH DINORA RADIATION DOSAGE (If Supplied By Facility): CTDIvol = ( 16.46 ) mGy, DLP = ( 556.70 ) mGycm TECHNIQUE: The patient was scanned in a multi detector CT scanner. High resolution transaxial imaging was performed. Images were obtained from T12 to S1 vertebral level. Sagittal and coronal images were reconstructed. Individualized dose optimization techniques were used for this CT. COMPARISON: None FINDINGS: There is straightening of the normal lumbar lordosis. There is no substantial scoliosis. Sclerotic changes are seen in the L2 vertebral body. L1-2: Normal endplates. Normal disc height and morphology. Normal bilateral facet joints. Normal central canal and bilateral lateral recesses. Normal bilateral intervertebral neural foramina. L2-3: Moderate degree of disc space narrowing. Anterior spondylosis. Mild degree of diffuse posterior disc bulge. Facet joint hypertrophy. Mild degree of bilateral neural foraminal stenosis and central canal stenosis. L3-4: Patient is status post laminectomy and transpedicular screw fixation. L4-5: Status post laminectomy and interpedicular screw fixation. Moderate degree of disc space narrowing and disc degeneration. No evidence of stenosis. L5-S1: Normal endplates. Normal disc height and morphology. Normal bilateral facet joints. Normal central canal and bilateral lateral recesses. Normal bilateral intervertebral neural foramina. Normal visualized paraspinous soft tissue structures. CT/Spine Lumbar without Contrast IMPRESSION: Prior laminectomy and interpedicular screw fixation at the L3-L4 and L4-L5 levels. Sclerotic changes seen in the L2 vertebral body. Facet joint arthropathy at the L2-L3 level with mild bilateral neural foraminal and central canal stenosis. Electronically Signed: Paulo De Oliveira MD at 11:00 EDT ,
== END | disposition home or self-care (01) ==
LOC: CT 07:06
PROVIDERS: PCP Internal Medicine; Referring Provider Anesthesiology Pain Medicine; Visit Provider Anesthesiology Pain Medicine
DX: M96.1 Postlaminectomy syndrome, not elsewhere classified (principal)
CPT/HCPCS: 72131

== ENCOUNTER → 2023-08-13 | Outpatient (CLI) | payer OTHER, SELFPAY ==
[2023-08-13 10:25] LABS: Absolute Neutrophil Count 3.1 X10^3/uL (2.0-7.7); Basophil# 0.02 X10^3/uL; Basophil% 0.4 % (0-1); Eosinophil# 0.06 X10^3/uL; Eosinophils% 1.1 % (0-5); Hematocrit 41.6 % (40-54); Hemoglobin 14.3 g/dL (13.0-16.5); Lymphocyte % 30.1 % (19-41); Mean Corp Hgb Conc 34.4 g/dL (32-36); Mean Corpuscular Hgb 33.3 pg (27.0-32.0); Mean Platelet Vol. 9.2 fl (6.2-12.0); Monocyte# 0.47 X10^3/uL; Monocyte% 8.9 % (0-10); NRBC Flagged by Analyzer 0 % (0-5); Neutrophil # 3.14 X10^3/uL (2.7-7.7); Neutrophil % 59.1 % (47-70); Platelet Count 232 K/mm3 (150-450); RBC Distribution Width CV 12.3 % (11.6-14.6); RBC Distribution Width SD 43.9 fl (35.1-43.9); Red Blood Count 4.29 M/mm3 (4.6-6.2); White Blood Count 5.3 K/mm3 (4.4-11.0)
[2023-08-13 11:06] LABS: Vitamin D,25 Hydroxy 49.5 ng/mL
[2023-08-13 11:20] LABS: AST(SGOT) 16 U/L (15-37); Alanine Aminotransfer ALT/SGPT 27 U/L (16-61); Albumin, Serum 3.6 g/dL (3.2-5.0); Alkaline Phosphatase 80 U/L (45-117); Anion Gap 4 (5-15); BUN 17 mg/dL (7-18); BUN/Creat Ratio 14.7 RATIO (10-20); Calcium,Total 8.6 mg/dL (8.5-10.1); Chloride 108 mmol/L (98-107); Cholesterol 217 mg/dL (200); Creatinine, Serum 1.16 mg/dL (0.70-1.30); EST Glomerular Filtration Rate 71 mL/min (>60); Est Glom Filt Rate - Afr Amer 85 mL/min (>60); Globulin 3.5 g/dL (2.2-4.2); Glucose 100 mg/dL (74-106); High Density Lipoprotein 38 mg/dL; PSA,Total - Annual Screen 0.86 ng/mL (0.00-4.00); Potassium 4.3 mmol/L (3.5-5.1); Protein, Total 7.1 g/dL (6.4-8.2); Sodium Level 140 mmol/L (136-145); Thyroid Stim Hormone (TSH) 3.31 uIU/mL (0.358-3.74); Triglycerides 217 mg/dL; Very Low Density Lipoprotein 43 mg/dL (5-40)
== END | disposition home or self-care (01) ==
LOC: LAB 09:42
PROVIDERS: PCP Internal Medicine; Referring Provider Internal Medicine; Visit Provider Internal Medicine
DX: Z00.00 Encounter for general adult medical examination without abnormal findings (principal); E78.5 Hyperlipidemia, unspecified; Z85.79 Personal history of other malignant neoplasms of lymphoid, hematopoietic and related tissues; Z13.220 Encounter for screening for lipoid disorders; E55.9 Vitamin D deficiency, unspecified; Z12.5 Encounter for screening for malignant neoplasm of prostate
CPT/HCPCS: 36415; 80053; 80061; 82306; 84153; 84443; 85025; G0103

== ENCOUNTER → 2023-08-31 | Outpatient (CLI) | payer OTHER, SELFPAY ==
--- NOTE | 2023-08-31 12:33 | US_ITS ---
STUDY: ULTRASOUND - US Abdomen Limited (quadrant) 09/02/2023 5:41 PM REASON FOR EXAM: Male, 53 years old. Subcutaneous tissue lump upper post buttockSubcutaneous tissue lump upper post buttock TECHNIQUE: A superficial ultrasound was performed with real-time and static keys-scale imaging. COMPARISON: None. FINDINGS: There is no fluid collection. There is no abscess. There is an isoechoic lesion below the skin surface measuring 13 x 37 x 10 mm. This is on the right side on the left side below the skin, there is a 15 x 25 x 9 mm lesion. It is also isoechoic to the underlying soft tissues. US/Abdomen Limited IMPRESSION: Bilateral soft tissue lesions may be lipomas. Electronically Signed: Christofer Posadas MD at 17:43 EDT ,
== END | disposition home or self-care (01) ==
LOC: US 12:33
PROVIDERS: PCP Internal Medicine; Referring Provider Internal Medicine; Visit Provider Internal Medicine
DX: R22.9 Localized swelling, mass and lump, unspecified (principal)
CPT/HCPCS: 76705

== ENCOUNTER 2024-03-28 12:07 | Day surgery (SDC) | payer OTHER, SELFPAY ==
[2024-03-28] VITALS (11 sets, daily range): BP systolic 131–164; BP diastolic 84–100; PULSE 67–82; RESP 16–18; TEMP 36.1–36.2; O2SAT 97–100; BMI 31.4
[2024-03-28] MEDS: Lidocaine 0.5% (50 ml) 50 ML Vial (04:15)
[2024-03-28] MEDS: Lactated Ringers 1,000 ML 15 ML IV (12:34)
[2024-03-28] MEDS: Vancomycin IV 1,000 MG/200 ML BAG 200 MG IV (12:42)
--- NOTE | 2024-03-28 13:31 | PRE.ANES_ITS ---
ASA Classification* ASA Classification ASA Classification: 2 Assessment & Plan Anesthesia* Anesthesia Assessment Anesthesia Assessment: Discussed sedation and/or anesthesia options, risks, benefits, and alternatives with patient/parents/legal guardian/POA. Questions invited. The patient/parents/legal guardian/POA seems to understand and agrees to proceed with anesthesia plan. Reviewed the physical assessment, medical history, allergy history and patient home medications list prior to surgery/procedure/anesthetic and documented any changes. Performed airway and anesthesia risk assessments. Anesthesia Type Anesthesia Type: General History Source History Obtained from:: Patient and Chart Anesthesia Focused Assessment* Temperature: 97.2 F Pulse Rate: 80 Blood Pressure: 164/100 Respiratory Rate: 18 Pulse Ox: 99 Oxygen Delivery Method: Room Air Airway Assessment Mouth opens: >3 cm Mallampati Score: I Teeth Condition: Intact Neck Range of motion (ROM): Full ROM Focused Labs Anesthesia Preop lab: CBC WBC 5.3 K/mm3 (4.4-11.0) 08/13/23 09:47 RBC 4.29 M/mm3 (4.6-6.2) L 08/13/23 09:47 Hgb 14.3 g/dL (13.0-16.5) 08/13/23 09:47 Hct 41.6 % (40-54) 08/13/23 09:47 Plt Count 232 K/mm3 (150-450) 08/13/23 09:47 CHEMISTRY Potassium 4.3 mmol/L (3.5-5.1) 08/13/23 09:47 Sodium 140 mmol/L (136-145) 08/13/23 09:47 Magnesium 2.1 mg/dL (1.6-2.6) 10/25/20 13:00 BUN 17 mg/dL (7-18) 08/13/23 09:47 Creatinine 1.16 mg/dL (0.70-1.30) 08/13/23 09:47 Glucose 100 mg/dL (74-106) 08/13/23 09:47 TSH 3.31 uIU/mL (0.358-3.74) 08/13/23 09:47 COAG Pre-Assessment Diagnosis/Proposed Procedure Planned Operative Procedure(s): Insertion, Spinal Cord Stim,Permanent Anesthesia History Anesthesia History - foreign language instructor: Anesthesia History - foreign language instructor Hx Hospitalization No 03/21/24 09:30 Any Problems With Anesthesia No 03/21/24 09:30 Cholinesterase deficiency No 03/21/24 09:30 You/Your Family Experience No 03/21/24 09:30 fever (hyperthermia) with Relationship Recent Exposure to Contagious No 03/28/24 12:32 Disease Does patient have nerve No 03/21/24 09:30 stimulator Patient instructed to have device shut off --Does patient have Pacemaker No 03/28/24 12:32 or ICD? When Was Last Pacemaker Check QUESTION #4 FULL TEXT: You/Your Family Experience fever (hyperthermia) with Anesthesia Last Oral Intake Last Oral intake: Last Oral Intake NPO since 23:00 03/28/24 12:32 Meds taken in AM with sips of Yes 03/28/24 12:32 water? Meds patient instructed to take am of surgery Any additional information?: Yes Meds taken in AM with sips of water?: Yes PONV PONV - foreign language instructor: PONV - foreign language instructor Female No 03/21/24 09:30 HX of Motion Sickness No 03/21/24 09:30 HX of N/V After Surgery No 03/21/24 09:30 Non-Smoker Yes 03/21/24 09:30 Duration of Surgery greater Yes 03/21/24 09:30 than 60 minutes Number of Risk Factors 2 03/21/24 09:30 PONV Score Moderate Risk 03/21/24 09:30 Height & Weight Height & Weight: Anesthesia: Height & Weight Height 5 ft 11 in 03/28/24 12:32 Weight: 102.1 kg 03/28/24 12:32 Body Mass Index (BMI) 31.4 03/28/24 12:32 Respiratory Assessment Respiratory Assessment - foreign language instructor: Respiratory Tract Infection Hx - foreign language instructor Hx Respiratory Tract Infection No 03/21/24 09:30 STOP Sleep Apnea STOP Sleep Apnea - foreign language instructor: STOP Sleep Apnea - foreign language instructor Hx Hypertension No 03/21/24 09:30 Hx Sleep Apnea No 03/21/24 09:30 CPAP BIPAP Do you snore loudly (louder No 03/21/24 09:30 than talking or can be heard Do you often feel tired/ No 03/21/24 09:30 fatigued/ sleepy during daytime? Has anyone observed you stop No 03/21/24 09:30 breathing during sleep? STOP Results Negative 03/21/24 09:30 QUESTION #5 FULL TEXT : Do you snore loudly (louder than talking or can be heard through closed doors)? Tobacco Use History Tobacco Use History - foreign language instructor: Tobacco Use History - foreign language instructor Tobacco Use Smoking Status Former smoker 03/21/24 09:30 Hx Tobacco Use No 03/21/24 09:30 Years Smoking Packs Smoked per Day Smoking Cessation Date was Yes - quit smoking within 15 03/21/24 09:30 within the last 15 years years Hx Smoking Cessation Date Hx Smoking Cessation Counseling Hematologic Medial History Hematologic Hx - foreign language instructor: Hematologic Medical Hx - documentation supervisor Hx of Blood Transfusion No 03/21/24 09:30 Hx of Transfusion in last 3 No 03/21/24 09:30 Months Date of Last Transfusion (if within last 3 months) Ever experience any problems No 03/21/24 09:30 with transfusion(s)? Specify any problems Hx of Preganancy in last 3 N/A 03/21/24 09:30 Months Nurse Filling Out Transfusion VCHRISTIN 03/21/24 09:30 & Questions: Date: 03/21/24 03/21/24 09:30 Time: 09:31 03/21/24 09:30 Patient unable to answer at this time (ie. confused, unrespo /Reproduction History /Reproductive History - foreign language instructor: /Reproductive Hx- foreign language instructor Hx Now Gestational Age (in weeks): EDC: Hx Hx Para Hx Section SAB Active Medications Active Medications: Current Medications Generic Name Dose Route Start Last Admin Trade Name Clarissa PRN Reason Stop Dose Admin Lactated Ringer's 1,000 mls @ 15 mls/hr 03/28/24 12:30 03/28/24 12:34 IV 04/03/24 01:49 15 mls/hr .Q48H ALANIS Administration Protocol PFS Medical History (Updated 03/21/24 @ 09:30 by Silvia Nunez) Wears glasses Cancer Alcohol use Kidney stones Back pain Injury of head and neck Gastric reflux Non-smoker History of irregular heartbeat Arthritis Acute lymphoblastic leukemia, Burkitt's type Fracture of right femur Chronic low back pain Penile pain Home Medications ?Medication ?Instructions ?Recorded ?Last Taken ?Type oxycodone-acetaminophen 5 mg-325 1 tab PO BID-TID PRN pain 08/13/23 03/28/24 History mg tablet acetaminophen 325 mg tablet 650 mg PO Q6H PRN pain 10/25/23 Unknown History (Tylenol) gabapentin 600 mg tablet 600 mg PO QHS 03/21/24 Unknown History Allergy/AdvReac Type Severity Reaction Status Date / Time moxifloxacin (From Avelox) Allergy Mild SOB Verified 03/28/24 12:31 Penicillins Allergy Mild Rash Verified 03/28/24 12:31 Family History Mother Asthma Hypertension High cholesterol Brother Asthma Grandfather Colon cancer CVA (cerebral vascular accident) Surgical History (Updated 03/21/24 @ 09:30 by Silvia Nunez) S/P ORIF (open reduction internal fixation) fracture History of lumbar fusion Hx of decompressive lumbar laminectomy Social History Smoking Status: Former smoker alcohol intake: current alcohol intake frequency: holidays/special occasions only substance use type: does not use what type of physical activity do you participate in: none Review of Systems (Anesthesia) ROS Narrative System reviewed and no additional complaints, except as documented.
--- NOTE | 2024-03-28 14:00 | RAD_ITS ---
PROCEDURE: Insertion of spinal cord stimulator device. DATE OF EXAMINATION: March 28, 2024. INDICATION: Male, 53 years old. Chronic back pain. FLUOROSCOPY TIME (if supplied): (3 minutes and 41 seconds) minutes/seconds. 77.39 mGy. 13 images were submitted. RAD/Lumbar Spine 2 or 3 Views IMPRESSION: Intraoperative fluoroscopic images provided for spinal cord stimulator device placement. The tip of the electrodes is at the T7-T8 level. Electronically Signed: Paulo De Oliveira MD at 8:56 EDT ,
[2024-03-28] MEDS: Bupiv/Epi 0.25% 30 ML Vial (14:15)
--- NOTE | 2024-03-28 16:00 | PCM.POST.ANE ---
Anesthesia: Postop Eval I Current Vital Signs Temperature: 97 F Pulse Rate: 76 Blood Pressure: 139/87 Respiratory Rate: 18 Pulse Ox: 99 Oxygen Delivery Method: Room Air Assessment Airway patent: Yes Spontaneous unlabored respirations: Yes nausea: No Vomiting: No Anesthesia Complication: No Fluid Hydration Crystalloid volume administer (ml): 200 Total IV fluid infused: 200 Progress Note Anesthesia document: Postop Eval 1 completed: Yes
--- NOTE | 2024-03-28 16:22 | PCM.POSTANE2 ---
Anesthesia Postop Eval I Sum Anesthesia Postop Eval I Summary Anesthesia Postop Eval I Summary: Anesthesia Postop Eval I: Assessment Summary Airway patent Spontaneous unlabored respirations Mental status nausea Vomiting Anesthesia Postop Eval I: Fluid Summary Crystalloid volume administer (ml) Colloids volume administered ( ml) Blood Product volume administered (ml) Total IV fluid infused Anesthesia Postop Eval I: Summary Notes Anesthesia Complication Anesthesia Complication Comment: Post-operative progress note Anesthesia: Postop Eval II Evaluation Mental status: Awake and Calm Pain Level: 1 nausea: No Vomiting: No Complications Anesthesia Complication: No
[2024-03-28] MEDS: HYDROcodone Bitartrate/Apap 5/325 Tablet PO (16:25)
--- NOTE | 2024-03-28 17:18 | SUR.PHASEII ---
PATIENT PAIN LEVEL IN HIS HEAD IS BETTER AT LEVEL 3/10 AND BACK IS 7-8. PATIENT IS READY TO GO HOME.
== END 2024-03-28 17:38 | disposition home or self-care (01) ==
LOC: SDC 12:08 → AC 12:08
PROVIDERS: PCP Internal Medicine; Referring Provider Anesthesiology Pain Medicine; Visit Provider Anesthesiology Pain Medicine
PROC: (CPT 63685; principal; 2024-03-28 13:25)
DX: G89.29 Other chronic pain (principal); M96.1 Postlaminectomy syndrome, not elsewhere classified; M47.816 Spondylosis without myelopathy or radiculopathy, lumbar region; M47.817 Spondylosis without myelopathy or radiculopathy, lumbosacral region; Z79.891 Long term (current) use of opiate analgesic; Z79.899 Other long term (current) drug therapy; Z87.891 Personal history of nicotine dependence
CPT/HCPCS: 63685; 63650 ×2; 00300; 72100; 76000; C1778; C1820; J7120; J2405

== ENCOUNTER → 2024-08-14 | Outpatient (CLI) | payer MEDICARE, SELFPAY ==
--- NOTE | 2024-08-14 14:25 | RAD_ITS ---
PROCEDURE: KNEE 4 OR MORE VIEWS REASON FOR EXAM: PAIN TECHNIQUE: Four view of each knee. COMPARISON: 2020 FINDINGS: Right knee: There is sclerosis in the lateral femoral condyle and proximal tibia compatible with bone infarcts. This has increased. . No acute fracture detected. Left knee: Sclerosis in the lateral right femoral condyle as well as proximal tibia most suggestive of bone infarcts or AVN. This has increased Trace knee effusions RAD/Knee 4 or More Views IMPRESSION: Mild tricompartmental osteoarthritic change. Increased sclerosis in the distal left femur and proximal tibia bilaterally with imaging characteristics of bone infarcts; presumed AVN. MRI is advised for fur ther characterization if ongoing concern Reading Location: [facility]
--- NOTE | 2024-08-14 14:25 | RAD_ITS ---
PROCEDURE: KNEE 4 OR MORE VIEWS REASON FOR EXAM: PAIN TECHNIQUE: Four view of each knee. COMPARISON: 2020 FINDINGS: Right knee: There is sclerosis in the lateral femoral condyle and proximal tibia compatible with bone infarcts. This has increased. . No acute fracture detected. Left knee: Sclerosis in the lateral right femoral condyle as well as proximal tibia most suggestive of bone infarcts or AVN. This has increased Trace knee effusions RAD/Knee 4 or More Views IMPRESSION: Mild tricompartmental osteoarthritic change. Increased sclerosis in the distal left femur and proximal tibia bilaterally with imaging characteristics of bone infarcts; presumed AVN. MRI is advised for fur ther characterization if ongoing concern Reading Location: [facility]
== END | disposition home or self-care (01) ==
LOC: RAD 14:21
PROVIDERS: PCP Internal Medicine; Referring Provider Anesthesiology Pain Medicine; Visit Provider Anesthesiology Pain Medicine
DX: M25.561 Pain in right knee (principal); M25.562 Pain in left knee
CPT/HCPCS: 73564

== ENCOUNTER → 2024-10-16 | Outpatient (CLI) | payer MEDICARE, SELFPAY ==
--- NOTE | 2024-10-16 07:52 | MRI_ITS ---
PROCEDURE: LOWER EXT JOINT ONLY W/WO CONT 10/16/2024 REASON FOR EXAM: CHRONIC PAIN. Osteonecrosis. TECHNIQUE: MRI of the right knee without and with intravenous gadolinium-based contrast. Multiplanar and multisequence images were obtained. COMPARISON: Knee x-rays August 14, 2024 FINDINGS: Marrow: There is partially visualized curvilinear serpiginous increased T2 signal in the distal femoral metaphysis and mixed increased and decreased T2 signal partially visualized within the proximal tibial metaphyseal diaphyseal junction and mixed increased and decreased T2 signal in the nonarticular lateral femoral condyle epiphysis consistent with sites of osteonecrosis/bone infarcts/avascular necrosis. No acute fracture or osseous contusion. Alignment: Alignment appears anatomic. Menisci: Tear of the posterior horn medial meniscus. Tear of the posterior horn lateral meniscus. Tendons and ligaments: Anterior cruciate ligament and posterior cruciate ligament are intact. Distal quadriceps tendon and patellar tendon are intact. Medial collateral ligament, fibular collateral ligament, iliotibial band and biceps femoris tendon are intact. Joint space: Minimal knee joint effusion. Tricompartmental cartilage appears intact. Small osteophytes at the margins of the medial and lateral compartment. Musculature: Visualized musculature appears normal with no evidence of muscular strain or muscular edema. Subcutaneous: No subcutaneous edema or fluid collections. Contrast: No enhancing or suspicious soft tissue lesions. No suspicious osseous lesions. MRI/Lower Ext Joint Only W/WO Cont IMPRESSION: 1. Bone infarcts in the distal femoral metaphysis and proximal tibial metaphys eal diaphyseal junction. 2. 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 3. Tears of the posterior horns of the medial and lateral menisci 4. Mild osteoarthritis Reading Location[facility]
--- NOTE | 2024-10-16 07:52 | MRI_ITS ---
PROCEDURE: LOWER EXT JOINT ONLY W/WO CONT 10/16/2024 REASON FOR EXAM: CHRONIC PAIN TECHNIQUE: MRI of the left knee with and without intravenous gadolinium-based contrast. Multiplanar and multisequence images were obtained. CONTRAST: Contrast dose = not reported COMPARISON: August 14, 2024 x-ray FINDINGS: Bones: There is a bone infarct in the lateral femoral condyle measuring 2.0 by 1.2 by 2.8 cm. There is a bone infarct in the proximal tibial metaphysis measuring at least 3.1 cm cranial caudal dimension by 2.1 cm in AP dimension 2.9 cm in transverse dimension, incompletely visualized with heterogeneous postcontrast enhancement. Cruciate ligaments: There is edema and attenuation throughout the anterior cruciate ligament with lax components in the inferior margin, grade 2-3 sprain. The posterior cruciate appears intact. Collateral ligaments: Medial collateral ligament appears intact. The lateral collateral ligament complex appears intact Menisci: There is a horizontal tear in the body of the medial meniscus which extends to the tibial surface. There is a complex tear in the lateral meniscus with a horizontal component in the posterior horn which extends to the tibial surface, with extrusion. Cartilage: There is moderate chondromalacia in the medial and lateral compartments. There is mild chondromalacia in the lateral patellar facet. Extensor mechanism: There is moderate tendinopathy of the distal quadriceps and proximal patellar tendons without tear. Effusion: There is a small joint effusion. There is a 1.8 by 1.2 by 4.2 cm Parker's cyst. MRI/Lower Ext Joint Only W/WO Cont IMPRESSION: There is a bone infarct in the lateral femoral condyle measuring 2.0 by 1.2 by 2.8 cm. There is a bone infarct in the proximal tibial metaphysis measuring at least 3. 1 cm cranial caudal dimension by 2.1 cm in AP dimension 2.9 cm in transverse dimension, incompletely visualized with heteroge neous postcontrast enhancement. There is edema and attenuation throughout the anterior cruciate ligament with l ax components in the inferior margin, grade 2-3 sprain. There is a horizontal tear in the body of the medial meniscus which extends to the tibial surface. There is a complex tear in the lateral meniscus with a horizontal component in the posterior horn which extends to the tibial surface, with extrusion. There is moderate chondromalacia in the medial and lateral compartments. T Here is mild chondromalacia in the lateral patellar facet. There is moderate tendinopathy of the distal quadriceps and proximal patellar t endons without tear. There is a small joint effusion. There is a 1.8 by 1.2 by 4.2 cm Parker's cyst. Reading [facility]
== END | disposition home or self-care (01) ==
PROVIDERS: PCP Internal Medicine; Referring Provider Orthopaedic Surgery; Visit Provider Orthopaedic Surgery
DX: M17.0 Bilateral primary osteoarthritis of knee (principal); G89.29 Other chronic pain
CPT/HCPCS: 73723; A9575